=== PATIENT | male | born 1990 | race Asian ===

== ENCOUNTER 2019-12-08 16:56 | Emergency (ER) | payer SELFPAY ==
[~2019-12-08] VITALS: Ht 167.6 cm; Wt 77.1 kg
[2019-12-08 17:13] VITALS: Ht 167.6 cm; Wt 77.1 kg
[2019-12-08 19:31] VITALS: BP 118/77
== END 2019-12-08 19:31 | disposition home or self-care (01) ==
LOC: ED 16:56
DX: S51.811A Laceration without foreign body of right forearm, initial encounter (principal); W11.XXXA Fall on and from ladder, initial encounter; Y93.89 Activity, other specified; Y92.89 Other specified places as the place of occurrence of the external cause; Y99.8 Other external cause status
CPT/HCPCS: 90715; J0690; J2001; Q0092